=== PATIENT | male | born 2000 | race Caucasian/White ===

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

== ENCOUNTER 2019-07-12 19:54 | Emergency (ER) | payer BC ==
[~2019-07-12] VITALS: Ht 175.3 cm; Wt 69.9 kg
[~2019-07-12 19:54] MED LIST changes: +AUG500 PO; +LAC PO; +PRI20 PO
[2019-07-12 20:02] VITALS: BP 117/76; Ht 175.3 cm; Wt 69.9 kg
== END 2019-07-12 21:51 | disposition home or self-care (01) ==
LOC: ED 19:54
DX: L02.01 Cutaneous abscess of face (principal)
CPT/HCPCS: J2001

== ENCOUNTER 2020-02-11 09:24 | Emergency (ER) | payer BC ==
[~2020-02-11] VITALS: Ht 167.6 cm; Wt 68.0 kg
[2020-02-11 09:40] VITALS: BP 140/95; Ht 167.6 cm; Wt 68.0 kg
== END 2020-02-11 10:24 | disposition home or self-care (01) ==
LOC: ED 09:24
DX: L02.11 Cutaneous abscess of neck (principal); E11.65 Type 2 diabetes mellitus with hyperglycemia; E78.00 Pure hypercholesterolemia, unspecified
CPT/HCPCS: 82962

== ENCOUNTER 2020-05-14 18:12 | Inpatient (IN) | payer BC ==
[~2020-05-14] VITALS: Ht 172.7 cm; Wt 69.4 kg
[2020-05-14 18:24] VITALS: Ht 172.7 cm; Wt 69.4 kg
[2020-05-14 19:20] LABS: ALBUMIN 4.1 g/dL (3.4-5.0); ALKALINE PHOSPHATASE 202 U/L (46-116); ALT/SGPT 48 U/L (16-63); AST/SGOT 56 U/L (15-37); BILIRUBIN TOTAL 0.76 mg/dL (0.20-1.00); CALCIUM 7.9 mg/dL (8.5-10.1); CHLORIDE SERUM 91 mmol/L (98-107); CREATININE SERUM 1.3 mg/dL (0.7-1.3); GFR1 > 60 mL/min; GLUCOSE SERUM 316 mg/dL (74-106); POTASSIUM SERUM 4.4 mmol/L (3.5-5.1); SODIUM SERUM 129 mmol/L (136-145)
[2020-05-14 19:28] LABS: TOTAL PROTEIN, SERUM 9.1 g/dL (6.4-8.2)
[2020-05-14 19:29] LABS: CARBON DIOXIDE 5.1 mmol/L (21-32)
[2020-05-14 20:14] LABS: BASOPHIL % 0.1 % (0-2); PLATELET COUNT 295 x10^3mcL (130-400); RED CELL DISTRIBUTION WIDTH 13.5 % (11.5-14.5)
[2020-05-14 20:29] LABS: AMPHETAMINE QUAL UR NONE DETECTED (See below)
[2020-05-14 21:12] LABS: FREE T4 0.9 ng/dL (0.76-1.46); FREE THYROXINE INDEX 1.9 ug/dL (1.4-4.5); T4(THYROXINE) 5.3 ug/dL (4.7-13.3)
[2020-05-14 21:18] LABS: CHOLESTEROL/HDL RATIO 6.6
[2020-05-15 00:12] VITALS: BP 139/80
[2020-05-15 00:47] LABS: CALCIUM 7.2 mg/dL (8.5-10.1); CHLORIDE SERUM 102 mmol/L (98-107); CREATININE SERUM 1.2 mg/dL (0.7-1.3); GFR1 > 60 mL/min; GLUCOSE SERUM 161 mg/dL (74-106); MAGNESIUM 2.2 mg/dL (1.8-2.4); PHOSPHOROUS 1.4 mg/dL (2.5-4.9); POTASSIUM SERUM 3.3 mmol/L (3.5-5.1); SODIUM SERUM 135 mmol/L (136-145)
[2020-05-15 01:18] LABS: CARBON DIOXIDE 7.3 mmol/L (21-32)
[2020-05-15 03:19] VITALS: BP 101/56
[2020-05-15 06:03] LABS: CALCIUM 7.1 mg/dL (8.5-10.1); CHLORIDE SERUM 102 mmol/L (98-107); CREATININE SERUM 1.1 mg/dL (0.7-1.3); GFR1 > 60 mL/min; GLUCOSE SERUM 146 mg/dL (74-106); MAGNESIUM 2.2 mg/dL (1.8-2.4); PHOSPHOROUS 1.6 mg/dL (2.5-4.9); SODIUM SERUM 135 mmol/L (136-145)
[2020-05-15 06:11] LABS: CARBON DIOXIDE 8.6 mmol/L (21-32)
[2020-05-15 07:16] LABS: BASOPHIL % 0.2 % (0-2); PLATELET COUNT 250 x10^3mcL (130-400); RED CELL DISTRIBUTION WIDTH 13.4 % (11.5-14.5)
[2020-05-15 07:45] VITALS: BP 119/68
[2020-05-15 09:17] LABS: CALCIUM 7.2 mg/dL (8.5-10.1); CARBON DIOXIDE 13.1 mmol/L (21-32); CHLORIDE SERUM 104 mmol/L (98-107); CREATININE SERUM 1.1 mg/dL (0.7-1.3); GFR1 > 60 mL/min; GLUCOSE SERUM 136 mg/dL (74-106); SODIUM SERUM 134 mmol/L (136-145)
[2020-05-15 09:26] LABS: PHOSPHOROUS 0.9 mg/dL (2.5-4.9); POTASSIUM SERUM 2.9 mmol/L (3.5-5.1)
[2020-05-15 11:44] VITALS: BP 106/64
[2020-05-15 13:16] LABS: CALCIUM 7.2 mg/dL (8.5-10.1); CARBON DIOXIDE 17.4 mmol/L (21-32); CHLORIDE SERUM 105 mmol/L (98-107); CREATININE SERUM 1.2 mg/dL (0.7-1.3); GFR1 > 60 mL/min; GLUCOSE SERUM 135 mg/dL (74-106); MAGNESIUM 2.2 mg/dL (1.8-2.4); PHOSPHOROUS 1.6 mg/dL (2.5-4.9); POTASSIUM SERUM 3.3 mmol/L (3.5-5.1); SODIUM SERUM 134 mmol/L (136-145)
[2020-05-15 14:36] LABS: T3 TOTAL 0.55 ng/mL
[2020-05-15 15:20] VITALS: BP 112/63
[2020-05-15 16:26] LABS: CALCIUM 7.5 mg/dL (8.5-10.1); CARBON DIOXIDE 20.2 mmol/L (21-32); CHLORIDE SERUM 107 mmol/L (98-107); GFR1 > 60 mL/min; GLUCOSE SERUM 119 mg/dL (74-106); SODIUM SERUM 137 mmol/L (136-145)
[2020-05-15 20:02] LABS: CALCIUM 7.4 mg/dL (8.5-10.1); CARBON DIOXIDE 19.1 mmol/L (21-32); CHLORIDE SERUM 101 mmol/L (98-107); GFR1 > 60 mL/min; GLUCOSE SERUM 281 mg/dL (74-106); POTASSIUM SERUM 3.5 mmol/L (3.5-5.1); SODIUM SERUM 134 mmol/L (136-145)
[2020-05-16 05:19] VITALS: BP 113/63
[2020-05-16 08:02] VITALS: BP 99/60
[2020-05-16 11:59] VITALS: BP 105/59
[2020-05-16 15:51] VITALS: BP 109/60
[2020-05-16] MEDS ORDERED: Tresiba SQ (15:51)
[2020-05-16 16:20] VITALS: BP 109/60
== END 2020-05-16 16:57 | disposition home or self-care (01) | DRG 638 ==
LOC: ED 18:12 → IC 20:11 → DU 05-15 22:43
PROVIDERS: Internal Medicine; Specialist; ADMIT Internal Medicine; ATTEND Internal Medicine
DX: E10.10 Type 1 diabetes mellitus with ketoacidosis without coma (principal); E87.1 Hypo-osmolality and hyponatremia; Z20.828 Contact with and (suspected) exposure to other viral communicable diseases; E86.0 Dehydration; E78.5 Hyperlipidemia, unspecified; D72.829 Elevated white blood cell count, unspecified; L55.0 Sunburn of first degree; Z79.899 Other long term (current) drug therapy; Z83.3 Family history of diabetes mellitus; Z80.9 Family history of malignant neoplasm, unspecified
CPT/HCPCS: 36600; 82962; 83880; 84439; C9113; G0378; G0480; J1815; J2405; J3475; J3490; J7030; Q0092